=== PATIENT | female | born 1975 | race Caucasian/White ===

== ENCOUNTER 2016-11-19 19:29 | Emergency (ER) | payer MEDICAID ==
[2016-11-19 19:41] VITALS: TEMP 98.3; BMI 26.6
[2016-11-19 19:52] LABS: AUTOMATED BASOPHIL 0.6 % (0-2); AUTOMATED EOSINOPHIL 2.6 % (0-5); AUTOMATED LYMPH 48.7 % (17-44); AUTOMATED MONOCYTE 5.6 % (3-10); AUTOMATED NEUTROPHIL 42.5 % (45-76)
[2016-11-19 20:05] LABS: BLOOD UREA NITROGEN 10 MG/DL (7-17); CALC CORRECTED 8.7 MG/DL (8.4-10.2); CALCIUM 8.4 MG/DL (8.4-10.2); CALCULATED OSMOLALITY 270 MOs/Kg (270-290); CHLORIDE 107 mEq/L (98-107); GLUCOSE 104 MG/DL (70-99); SODIUM LEVEL 141 mEq/L (137-146); TOTAL PROTEIN 6.9 G/DL (6.3-8.2)
[2016-11-19] MEDS ORDERED: KETOROLAC TROMETH 30 MG/ML VIAL IV ONE (22:16)
[2016-11-19] MEDS ORDERED: NS 1,000 ML IV ONE (22:16)
[2016-11-19] MEDS ORDERED: HYDROmorphone 1 MG INJECTION IV ONE (22:16)
[2016-11-19] MEDS ORDERED: ONDANSETRON HCL 4 MG/2 ML VIAL IV ONE (22:16)
--- NOTE | 2016-11-19 22:21 | EDPRACDOC ---
- General Information Chief Complaint: Abdominal Pain Stated Complaint: LEFT FLANK PAIN Time Seen by Provider: 11/19/16 21:44 Information Source: Patient Mode Of Arrival: Car Home Medications: Home Medications Levothyroxine [Synthroid, Levoxyl] 25 mcg PO DAILY 06/03/16 Multivit-Min/Folic Acid/Biotin [Hair, Skin & Nails Caplet] 1 tab PO DAILY Cyclobenzaprine HCl [Flexeril] 10 mg PO Q8H PRN #15 tab 11/20/16 Hydrocodone Bit/Acetaminophen [Hydrocodon-Acetaminophen 5-325] 1 - 2 tab PO Q6H PRN #12 tab 11/20/16 Ibuprofen Tablet [Motrin] 800 mg PO TID PRN #24 tab 11/20/16 Allergies/Adverse Reactions: Allergies Allergy/AdvReac Type Severity Reaction Status Date / Time No Known Allergies Allergy Verified 09/15/16 23:30 - History of Present Illness Onset: 3 weeks HPI: flank, L Pain Location: Reports: Flank Pain Context: Reports: Spontaneous Pain Severity: Severe Pain Quality: Reports: Aching Pain Radiation: Reports: Groin Last Menstrual Period: n/a : No (hysterectomy) Blood Type: Unknown Adult Abdominal History: Denies: Urolithiasis Female Abdominal History: Denies: Ectopic, PID, Urolithiasis Modifying Factors: improves with: Other (worse when lying on the L side) Female Associated Signs & Symptoms: Reports: Nausea, Dysuria ED Past Medical History - History Reviewed Yes Nurses notes reviewed and agree except as marked - Patient Medical History GI/ History: Reports: Kidney Stones (PASSED ON THEIR OWN) Psychological History: Reports: Anxiety. Denies: Depression Systemic History: Reports: Anemia (WITH ), Hypothyroidism Surgical History: Reports: Hysterectomy - Family Medical History Reports: Hypertension (MATERNAL GF), Diabetes (MATERNAL GM, MOTHER BORDERLINE), Cancer (MATERNAL GF COLON METASTATIC, AUNTS WITH BREAST CA), Stroke (MATERNAL GF , MATERNAL COUSIN), Cardiac Disorders (MATERNAL GF, MATERNAL UNCLE) - Social Medical History Smoking Status: Never smoker EDM Review of Systems - Review of Systems ROS Negative Except as Marked: Yes All systems reviewed and were negative except as marked - Physical Exam Constitutional: Alert (Awake), No apparent distress Oriented to: Time, Person, Place Last recorded Vital Signs: Last Vital Signs Temp 98.3 F 11/19/16 19:38 Pulse 55 L 11/19/16 22:32 Resp 18 11/19/16 22:32 BP 120/55 L 11/19/16 22:32 Pulse Ox 97 11/19/16 22:32 Oxygen Pulse Oxygen Saturation 97 O2 Device Room Air Oxygen Flow Rate Fraction of Inspired Oxygen ( FIO2) - HEENT Head: Normal ( normocephalic) Eye Exam: Normal (PERRL, EOMI, Sclera white) Oropharynx: Normal (Pharynx:Moist without exudate,Gums-no swelling) Tympanic Membrane: Normal ENT EAC: Normal TMJ: Normal Nose: No Symptoms Reported (septum midline) Neck: Normal (FROM, trachea at midline) - Respiratory/Cardiovascular Respiratory: Normal - CTA (BBS clear to auscultation without adventitious sounds ) Cardiovascular: Normal (RRR without murmur, gallop or rub) - GI Auscultation: Normal (NABS) Palpation: Normal (Soft,No rebound or guarding, non distended) Tenderness: LLQ. negative: RLQ, Rebound Hu's Sign: Negative - Musculoskeletal Back: Normal (Non-Tender) Extremities: Normal (Normal tone, Pulses 2+ No cyanosis or edema, FROM) - Integumentary Skin: Normal, Warm, Dry Lymphatics: Normal (no adenopathy) - Neurologic Memory Impaired: Normal Motor Function: Normal (Normal tone, Pulses 2+ No cyanosis or edema, FROM) Cranial Nerve: Normal (CN II-X11 intact sensation, strength 5/5) Cerebellar: Normal Mood Description: Normal Perception: Normal - Differential Diagnosis Urolithiasis, Ureterolithiasis - Re-evaluation Re-evaluation 1 Re-evaluation Time: 00:17 (no change) - Results All Results Reviewed and Normal except as Highlighted below: Yes 11/19/16 19:45 11/19/16 19:45 WBC 7.8 xk/uL (3.8-10.8) 11/19/16 19:45 RBC 4.75 xM/uL (4.20-5.40) 11/19/16 19:45 Hgb 13.2 g/dL (12.0-16.0) 11/19/16 19:45 Hct 40.1 % (36-47) 11/19/16 19:45 MCV 85 fL (81-99) 11/19/16 19:45 MCH 27.9 pg (27-32) 11/19/16 19:45 MCHC 33.0 g/dl (33-36) 11/19/16 19:45 RDW 14.2 % (11.5-14.5) 11/19/16 19:45 Plt Count 253 xk/uL (130-400) 11/19/16 19:45 MPV 9.0 fL (7.4-10.4) 11/19/16 19:45 Neut % (Auto) 42.5 % (45-76) L 11/19/16 19:45 Lymph % (Auto) 48.7 % (17-44) H 11/19/16 19:45 [place] % (Auto) 5.6 % (3-10) 11/19/16 19:45 Eos % (Auto) 2.6 % (0-5) 11/19/16 19:45 Baso % (Auto) 0.6 % (0-2) 11/19/16 19:45 Absolute Neuts (auto) 3.28 xk/uL (1.7-8.2) 11/19/16 19:45 Absolute Lymphs (auto) 3.74 xk/uL (0.65-4.75) 11/19/16 19:45 Sodium 141 mEq/L (137-146) 11/19/16 19:45 Potassium 4.4 mEq/L (3.5-5.1) 11/19/16 19:45 Chloride 107 mEq/L (98-107) 11/19/16 19:45 Carbon Dioxide 23 mMOL/L (22-33) 11/19/16 19:45 Anion Gap 15 mEq/L (8-16) 11/19/16 19:45 BUN 10 MG/DL (7-17) 11/19/16 19:45 Creatinine 0.70 MG/DL (0.52-1.04) 11/19/16 19:45 Estimated GFR (MDRD) > 60 mL/min (>=60) 11/19/16 19:45 Glucose 104 MG/DL (70-99) H 11/19/16 19:45 Calculated Osmolality 270 MOs/Kg (270-290) 11/19/16 19:45 Calcium 8.4 MG/DL (8.4-10.2) 11/19/16 19:45 Corrected Calcium 8.7 MG/DL (8.4-10.2) 11/19/16 19:45 Total Bilirubin 0.4 MG/DL (0.2-1.3) 11/19/16 19:45 AST 24 IU/L (14-36) 11/19/16 19:45 ALT 26 IU/L (9-52) 11/19/16 19:45 Alkaline Phosphatase 61 IU/L (38-126) 11/19/16 19:45 Total Protein 6.9 G/DL (6.3-8.2) 11/19/16 19:45 Albumin 3.7 G/DL (3.5-5.0) 11/19/16 19:45 Urine Color Yellow 11/19/16 22:35 Urine Clarity Clear 11/19/16 22:35 Urine pH 5.0 (5.0-8.0) 11/19/16 22:35 Ur Specific [place] 1.015 (1.003-1.035) 11/19/16 22:35 Urine Protein Neg (NEG/TRACE) 11/19/16 22:35 Urine Glucose (UA) Neg (NEGATIVE) 11/19/16 22:35 Urine Ketones Neg (NEGATIVE) 11/19/16 22:35 Urine Occult Blood Neg (NEG/TRACE) 11/19/16 22:35 Urine Nitrite Neg (NEGATIVE) 11/19/16 22:35 Urine Bilirubin Neg (NEGATIVE) 11/19/16 22:35 Urine Urobilinogen <2.0 MG/DL (0-1) 11/19/16 22:35 Ur Leukocyte Esterase Neg (NEGATIVE) 11/19/16 22:35 Urine RBC 0-2 (0-5) 11/19/16 22:35 Urine WBC 0-2 (0-5) 11/19/16 22:35 Ur Epithelial Cells Occ 11/19/16 22:35 Hyaline Casts 0-2 (0-2) 11/19/16 22:35 Urine Mucus Mod (NEG/OCC) H 11/19/16 22:35 Lab Results 11/19/16 11/19/16 11/19/16 22:35 19:45 19:45 WBC 7.8 RBC 4.75 Hgb 13.2 Hct 40.1 MCV 85 MCH 27.9 MCHC 33.0 RDW 14.2 Plt Count 253 MPV 9.0 Neut % (Auto) 42.5 L Lymph % (Auto) 48.7 H [place] % (Auto) 5.6 Eos % (Auto) 2.6 Baso % (Auto) 0.6 Absolute Neuts (auto) 3.28 Absolute Lymphs (auto) 3.74 Sodium 141 Potassium 4.4 Chloride 107 Carbon Dioxide 23 Anion Gap 15 BUN 10 Creatinine 0.70 Estimated GFR (MDRD) > 60 Glucose 104 H Calculated Osmolality 270 Calcium 8.4 Corrected Calcium 8.7 Total Bilirubin 0.4 AST 24 ALT 26 Alkaline Phosphatase 61 Total Protein 6.9 Albumin 3.7 Urine Color Yellow Urine Clarity Clear Urine pH 5.0 Ur Specific [place] 1.015 Urine Protein Neg Urine Glucose (UA) Neg Urine Ketones Neg Urine Occult Blood Neg Urine Nitrite Neg Urine Bilirubin Neg Urine Urobilinogen <2.0 Ur Leukocyte Esterase Neg Urine RBC 0-2 Urine WBC 0-2 Ur Epithelial Cells Occ Hyaline Casts 0-2 Urine Mucus Mod H - Diagnostic Imaging Abdomen Image interpreted by: Radiologist 11/20/16 00:21 Patient Name: BENNY BIRD LOC: ED : 1975 AGE: 40 Order Date:11/19/16 Date of Service: 11/19/16 Report # [id number] Ord Physician: Uri Rios MD Exam # [id number] Emergency Physician: Uri Rios MD Exam(s): [id number] CT/CT UROGRAM CLINICAL DATA: Left flank pain for 3 weeks. EXAM: CT ABDOMEN AND PELVIS WITHOUT CONTRAST TECHNIQUE: Multidetector CT imaging of the abdomen and pelvis was performed following the standard protocol without IV contrast. COMPARISON: CT 06/28/2016 FINDINGS: Lower chest: The included lung bases are clear. Diminished small pleural effusions from prior. Liver: 1.5 cm hypodensity in the hepatic dome, unchanged. 1 cm hypodensity more anteriorly, less well-defined without contrast. Tiny subcapsular lesion in the right lobe is not seen. This is unchanged in size allowing for differences in technique. No new focal abnormality. Hepatobiliary: Gallbladder decompressed. No biliary dilatation. Pancreas: No ductal dilatation or inflammation. Spleen: Normal. Adrenal glands: No nodule. Kidneys: Symmetric in size without stones or hydronephrosis. There is no perinephric stranding. Both ureters are decompressed without stones along the course. Stomach/Bowel: Stomach is decompressed. There are no dilated or thickened small bowel loops. Moderate volume of stool throughout the colon without colonic wall thickening. The appendix is normal. Vascular/Lymphatic: No retroperitoneal adenopathy. Abdominal aorta is normal in caliber. Reproductive: The cystectomy. Left ovary is normal in size. Right ovary not confidently seen. Bladder: Physiologically distended. No wall thickening or stone. Other: No free air, free fluid, or intra-abdominal fluid collection. Tiny fat containing umbilical hernia. Musculoskeletal: There are no acute or suspicious osseous abnormalities. IMPRESSION: No renal stones or obstructive uropathy. No acute abnormality in the abdomen/pelvis. Electronically Signed By: Dee Dee Brunner M.D. On: 11/19/2016 23:51 Electronically Signed By: Dee Dee Brunner MD Electronically Signed Date/Time: [id number] Decision Time to Discharge: 00:22 - Departure Yes I personally saw and evaluated the patient. Disposition: Home Condition: Stable Final Diagnosis: Acute left flank pain Instructions: Acute Abdominal Pain (ED), Non-pharmacological Pain Management Therapies for Adults (GEN), Abdominal Pain (ED), Back Pain (ED) Education/Counseling Given To: Patient, Family Member Education/Counseling Given Regarding: Diagnosis, Treatment, Follow Up Referrals: Ramos Mabry MD [Staff Physician] - One Week Prescriptions: Cyclobenzaprine HCl [Flexeril] 10 mg PO Q8H PRN #15 tab PRN Reason: Muscle Spasms Hydrocodone Bit/Acetaminophen [Hydrocodon-Acetaminophen 5-325] 1 - 2 tab PO Q6H PRN #12 tab PRN Reason: Pain Ibuprofen Tablet [Motrin] 800 mg PO TID PRN #24 tab PRN Reason: Pain
[2016-11-19 22:55] LABS: LEUKOCYTES/URINE NEG (NEGATIVE); NITRITE/URINE NEG (NEGATIVE); RBC/URINE 0-2 (0-5); URINE OCCULT BLOOD NEG (NEG/TRACE); WBC/URINE 0-2 (0-5)
--- NOTE | 2016-11-19 23:54 | DIRPT ---
CLINICAL DATA: Left flank pain for 3 weeks. EXAM: CT ABDOMEN AND PELVIS WITHOUT CONTRAST TECHNIQUE: Multidetector CT imaging of the abdomen and pelvis was performed following the standard protocol without IV contrast. COMPARISON: CT 06/28/2016 FINDINGS: Lower chest: The included lung bases are clear. Diminished small pleural effusions from prior. Liver: 1.5 cm hypodensity in the hepatic dome, unchanged. 1 cm hypodensity more anteriorly, less well-defined without contrast. Tiny subcapsular lesion in the right lobe is not seen. This is unchanged in size allowing for differences in technique. No new focal abnormality. Hepatobiliary: Gallbladder decompressed. No biliary dilatation. Pancreas: No ductal dilatation or inflammation. Spleen: Normal. Adrenal glands: No nodule. Kidneys: Symmetric in size without stones or hydronephrosis. There is no perinephric stranding. Both ureters are decompressed without stones along the course. Stomach/Bowel: Stomach is decompressed. There are no dilated or thickened small bowel loops. Moderate volume of stool throughout the colon without colonic wall thickening. The appendix is normal. Vascular/Lymphatic: No retroperitoneal adenopathy. Abdominal aorta is normal in caliber. Reproductive: The cystectomy. Left ovary is normal in size. Right ovary not confidently seen. Bladder: Physiologically distended. No wall thickening or stone. Other: No free air, free fluid, or intra-abdominal fluid collection. Tiny fat containing umbilical hernia. Musculoskeletal: There are no acute or suspicious osseous abnormalities. IMPRESSION: No renal stones or obstructive uropathy. No acute abnormality in the abdomen/pelvis. Electronically Signed By: Dee Dee Brunner M.D. On: 11/19/2016 23:51
[2016-11-20 00:48] VITALS: BP 118/59; PULSE 60
== END 2016-11-20 00:40 | disposition home or self-care (01) ==
LOC: ED 19:29
DX: R10.9 Unspecified abdominal pain (principal); F41.9 Anxiety disorder, unspecified; E03.9 Hypothyroidism, unspecified; Z87.442 Personal history of urinary calculi; Z79.899 Other long term (current) drug therapy
CPT/HCPCS: 36415; 74176; 80053; 81001; 85025; 96361; 96374; 96375; 99284; J1170; J1885; J2405